=== PATIENT | male | born 1965 | race Caucasian/White ===

== ENCOUNTER 2017-10-13 21:14 | Emergency (ER) | payer OTHER ==
--- NOTE | 2017-10-13 23:30 | RAD ---
RIGHT KNEE RADIOGRAPHS FOUR VIEWS 10/13/17 PROVIDED CLINICAL HISTORY: Right knee pain. FINDINGS: No comparisons. There is no evidence for fracture. Alignment appears anatomic. Joint spaces appear preserved. There i s a well circumscribed somewhat sclerotic lesion involving the medial distal femoral metadiaphyseal r egion, incompletely characterized radiographically. No evidence for significant knee joint capsular d istention. IMPRESSION: 1. No evidence for a fracture. 2. Sclerotic lesion in the medial distal femoral metadiaphyseal region, possibly reflecting a he aled fibroxanthoma. Consider radiographic follow up or correlation with whole body bone scan. POS: CET
[2017-10-13] MEDS ORDERED: Ketorolac Tromethamine 30 MG/ML VIAL ONE (23:48)
== END 2017-10-14 00:30 | disposition home or self-care (01) ==
LOC: ERS 21:14
DX: M25.561 Pain in right knee (principal); I10 Essential (primary) hypertension; E11.9 Type 2 diabetes mellitus without complications; F41.9 Anxiety disorder, unspecified; F32.9 Major depressive disorder, single episode, unspecified; Z87.891 Personal history of nicotine dependence
CPT/HCPCS: 96372; J1885

== ENCOUNTER 2018-02-11 21:56 | Emergency (ER) | payer OTHER ==
[2018-02-11] MEDS ORDERED: Clindamycin 150 MG CAP ONE (22:23)
[2018-02-11] MEDS ORDERED: Ondansetron ODT 4 MG TAB ONE (22:23)
[2018-02-11] MEDS ORDERED: Ibuprofen 800 MG TAB ONE (22:23)
== END 2018-02-11 22:32 | disposition home or self-care (01) ==
LOC: ERS 21:56
DX: S60.467A Insect bite (nonvenomous) of left little finger, initial encounter (principal); L03.012 Cellulitis of left finger; R11.0 Nausea; E11.9 Type 2 diabetes mellitus without complications; I10 Essential (primary) hypertension; F43.10 Post-traumatic stress disorder, unspecified; F41.9 Anxiety disorder, unspecified; F32.9 Major depressive disorder, single episode, unspecified; Z87.891 Personal history of nicotine dependence; W57.XXXA Bitten or stung by nonvenomous insect and other nonvenomous arthropods, initial encounter
CPT/HCPCS: 99283; Q0162

== ENCOUNTER 2018-04-06 14:09 | Inpatient (IN) | payer OTHER, SELFPAY ==
[2018-04-06 15:13] LABS: #Eosinphils 0.1 thou/uL (0.0-0.7); #Lymphocytes 0.9 thou/uL (1.20-3.40); #Neutrophils 8.3 thou/uL (1.40-6.50); %Basophils 0.1 % (0.0-1.0); %Eosinophils 0.6 % (0.0-10.0); %Lymphocytes 8.5 % (21.0-51.0); %Neutrophils 80.7 % (42.0-75.0); Hemoglobin 14.7 g/dL (14.0-18.0); Mean Corpuscular HGB CONC 34.8 g/dL (32.0-36.0); Mean Corpuscular Hemoglobin 29.7 pg (27.0-31.0); Mean Corpuscular Volume 85.3 fL (78.0-98.0); Platelet Count 234 thou/uL (130-400); RBC Distribution Width 12.3 % (11.5-14.5); Red Blood Cell (RBC) Count 4.95 mill/uL (4.70-6.10); White Blood Cell (WBC) Count 10.3 thou/uL (4.8-10.8)
[2018-04-06 15:32] LABS: Anion Gap 16 mmol/L (10-20); BUN (Urea Nitrogen) 17 mg/dL (8.4-25.7); CRP (Inflammatory) 22.79 mg/dL (= or < 0.5); Calc. Creatinine Clearance 0 mL/min (70-130); Calcium 9.8 mg/dL (7.8-10.44); Carbon Dioxide 24 mmol/L (22-29); Chloride 96 mmol/L (98-107); Estimated GFR-MDRD 83; Glucose 204 mg/dL (70-105); Potassium 4.3 mmol/L (3.5-5.1); Sodium 132 mmol/L (136-145)
[2018-04-06] MEDS ORDERED: Morphine 4 MG/ML VIAL ONE (15:32)
[2018-04-06] MEDS ORDERED: Ketorolac Tromethamine 30 MG/ML VIAL ONE (15:32)
--- NOTE | 2018-04-06 16:26 | RAD ---
RIGHT KNEE FOUR VIEWS: 04/06/18 HISTORY: Right knee pain and swelling. COMPARISON: Knee radiographs 10/14/17. FINDINGS: There is extensive prepatellar soft tissue swelling. There is an area of sclerosis of the medullary c anal. There is an area of sclerosis of the medullary canal of the medial aspect of the distal femur. No soft tissue mass is appreciated. There are small lateral compartment osteophytes. IMPRESSION: 1. Extensive prepatellar soft tissue swelling suggesting prepatellar bursitis. 2. 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 POS: TPC
[2018-04-06 16:34] LABS: ALT (SGPT) 22 U/L (8-55); AST (SGOT) 17 U/L (5-34); Albumin 4.3 g/dL (3.5-5.0); Alkaline Phosphatase 117 U/L (40-150); Bilirubin, Total 1.2 mg/dL (0.2-1.2); Globulin 3.6 g/dL (2.4-3.5); Protein, Total 7.9 g/dL (6.0-8.3)
[2018-04-06] MEDS ORDERED: cefTRIAXone\\ROCEPHIN 1 GM VIAL ONE (16:50)
[2018-04-06] MEDS ORDERED: cefTRIAXone\\ROCEPHIN 1 GM in Sodium Chloride 0.9% 100 ML IVPB SCH (17:15)
[2018-04-06] MEDS ORDERED: HYDROcodone/Acetaminophen 5/325 mg Tablet PO PRN (19:55)
[2018-04-06] MEDS ORDERED: hydrALAZINE 20 MG/ML VIAL SLOW IVP PRN ×2 (19:55→22:00)
[2018-04-06 20:02] VITALS: BMI 33.5
[2018-04-06] MEDS: Ketorolac Tromethamine 30 MG/ML VIAL IVP PRN (20:38)
[2018-04-06] MEDS ORDERED: Senokot S 8.6-50 MG TAB PO SCH (21:00)
[2018-04-06] MEDS ORDERED: [UNRECOGNIZED DRUG - REMARK] IVPB PRN (21:55)
[2018-04-06] MEDS ORDERED: Dextrose 5% in Water 1,000 ML IV PRN (21:56)
[2018-04-06] MEDS ORDERED: Dextrose 50% Abboject 50 ML SYRINGE SLOW IVP PRN (21:56)
[2018-04-06] MEDS ORDERED: Ondansetron HCl/PF 4 MG/2 ML Vial IVP PRN (21:58)
[2018-04-06] MEDS ORDERED: Calcium Carbonate 500 MG ChewTAB PO PRN (21:58)
[2018-04-06] MEDS ORDERED: Ondansetron ODT 4 MG TAB PO PRN (21:58)
[2018-04-06] MEDS ORDERED: Milk Of Magnesia 30 ML UDCUP PO PRN (21:58)
[2018-04-06] MEDS ORDERED: Eucerin (Mineral Oil/Petrolatum,White) 30 gm Jar TOP PRN (22:00)
[2018-04-06] MEDS ORDERED: cloNIDine 0.1 MG TAB PO PRN (22:00)
[2018-04-06] MEDS ORDERED: Labetalol HCl 100 MG/20 ML VIAL SLOW IVP PRN (22:00)
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
[2018-04-06] MEDS ORDERED: lamoTRIgine 100 MG TAB PO SCH (22:15)
[2018-04-06] MEDS: Sodium Chloride 0.9% 1,000 ML IV SCH (22:18)
[2018-04-07] MEDS: Vancomycin HCl 1.5 GM in Sodium Chloride 0.9% 250 ML 300 ML IVPB SCH ×2 (00:21→08:49)
[2018-04-07] MEDS: oxyCODONE 5 MG TAB PO PRN ×5 (01:15→22:26)
--- NOTE | 2018-04-07 02:13 | CON ---
DATE OF CONSULTATION: 04/06/2018 CHIEF COMPLAINT: Right knee pain. HISTORY OF PRESENT ILLNESS: Mr. Hernandez is a 53-year-old male who was at work at [employer] over the and last week. He began having pain in the anterior knee, last . This worsened over . He began wearing a knee brace, but continued to have pain and swelling. He developed esther thema yesterday. Today, he presented to the emergency department after he was unable to continue at his normal activity. He was found to have swelling, pain, and erythema. He was thought to have an i nfection of the knee. An attempted aspiration was made; however, no fluid was obtained by the emerge ncy room physician. He has been started on vancomycin and given ceftriaxone. He has plans to be adm itted to the hospital. He is currently still in the emergency department. He denies trauma to the k nee. No cuts, scrapes. PAST MEDICAL HISTORY: Includes chronic low back pain, diabetes, hypertension, history of gout. PAST SURGICAL HISTORY: Lumbar back surgery and appendectomy. PSYCHIATRIC: History of PTSD also anxiety and depression. SOCIAL HISTORY: The patient is employed. He denies any significant tobacco, alcohol, or drug use. ALLERGIES: PENICILLIN. MEDICATIONS: Metformin, ranitidine, Wellbutrin and he says he takes insulin for his diabetes. IMAGES: X-rays of the right knee demonstrate some evidence of osteoarthritis and degenerative change . The joint space is preserved. There is a large amount of soft tissue swelling and what appears to be a joint effusion. PHYSICAL EXAMINATION: VITAL SIGNS: Temperature is 142/82, respiratory rate 18, temperature is 99.2, oxygen saturations 93% . GENERAL: He is alert, sitting upright in no apparent distress. RESPIRATORY: Breathing comfortably. ABDOMEN: Soft, nontender, nondistended. HEENT: Normocephalic, atraumatic. MUSCULOSKELETAL: Patient has a large amount of erythema and swelling of the anterior knee. He is te nder to palpation. He has faint erythema extending distally over the anterior tibia. He is able to flex the knee to 90 degrees. He can fully extend the knee. No drainage or fluctuance noted. IMPRESSION: Prepatellar serve septic bursitis of the right knee in a diabetic male. PLAN: At this point, the patient would benefit from further intravenous antibiotic treatment. He wi ll need to continue broad-spectrum antibiotics. He likely does have a Staph septic bursitis. I will continue to follow. If he develops worsening or a focal abscess certainly over the prepatellar burs a, we could consider irrigation and debridement. Hopefully, he will respond well to antibiotics. I do not think he has a septic knee, but simply a septic bursitis. He can eat and drink until we see h ow he responds to antibiotics. No plans for surgery tomorrow.
[2018-04-07 05:28] LABS: #Eosinphils 0.1 thou/uL (0.0-0.7); #Lymphocytes 0.9 thou/uL (1.20-3.40); #Monocytes 1.1 thou/uL (0.11-0.59); #Neutrophils 6.7 thou/uL (1.40-6.50); %Basophils 0.2 % (0.0-1.0); %Eosinophils 1.1 % (0.0-10.0); %Lymphocytes 10.4 % (21.0-51.0); %Monocytes 12.1 % (0.0-10.0); %Neutrophils 76.3 % (42.0-75.0); Hemoglobin 13.4 g/dL (14.0-18.0); Mean Corpuscular HGB CONC 34.8 g/dL (32.0-36.0); Mean Corpuscular Hemoglobin 29.7 pg (27.0-31.0); Mean Corpuscular Volume 85.3 fL (78.0-98.0); Mean Platelet Volume 6.9 fL (7.4-10.4); Platelet Count 191 thou/uL (130-400); RBC Distribution Width 12.2 % (11.5-14.5); Red Blood Cell (RBC) Count 4.53 mill/uL (4.70-6.10); White Blood Cell (WBC) Count 8.8 thou/uL (4.8-10.8)
[2018-04-07] MEDS: Acetaminophen 325 MG TAB PO PRN ×3 (05:44→22:30)
[2018-04-07 05:49] LABS: Anion Gap 12 mmol/L (10-20); BUN (Urea Nitrogen) 14 mg/dL (8.4-25.7); Calc. Creatinine Clearance 162 mL/min (70-130); Carbon Dioxide 27 mmol/L (22-29); Chloride 98 mmol/L (98-107); Estimated GFR-MDRD 90; Glucose 209 mg/dL (70-105); Magnesium 1.6 mg/dL (1.6-2.6); Potassium 4.3 mmol/L (3.5-5.1); Sodium 133 mmol/L (136-145)
[2018-04-07] MEDS: Sodium Chloride 0.9% 1,000 ML IV SCH (05:57)
[2018-04-07] MEDS: Ketorolac Tromethamine 30 MG/ML VIAL IVP PRN ×3 (05:57→18:21)
[2018-04-07] MEDS: Bupropion 150 MG XL TAB PO SCH (08:48)
[2018-04-07] MEDS: Insulin Glargine 40 UNITS in Pre-Filled Syringe 1 EACH SC SCH (08:48)
[2018-04-07] MEDS: Atorvastatin Calcium 20 MG TAB PO SCH (08:49)
[2018-04-07] MEDS: Saccharomyces boulardii 250 MG CAP PO SCH (08:49)
[2018-04-07] MEDS: Polyethylene Glycol 3350 17 GM Packet PO SCH ×2 (08:58→18:33)
[2018-04-07] MEDS ORDERED: cefTRIAXone\\ROCEPHIN 2 GM in Sodium Chloride 0.9% 100 ML IVPB SCH (09:00)
[2018-04-07] MEDS ORDERED: Famotidine 20 MG TAB PO SCH (09:00)
[2018-04-07] MEDS ORDERED: Heparin 1,000 UNITS/ML VIAL ONE (09:00)
[2018-04-07] MEDS: Senokot S 8.6-50 MG TAB PO SCH ×2 (09:12→18:32)
[2018-04-07] MEDS: Insulin Regular 300 UNITS/3 ML VIAL SC PRN ×2 (11:25→16:33)
[2018-04-07 16:44] LABS: Vancomycin, Trough 8.5 ug/mL
[2018-04-07] MEDS: CEFAZOLIN/Water 2 GM/20 ML SYRINGE SLOW IVP SCH (18:21)
[2018-04-07] MEDS: lamoTRIgine 100 MG TAB PO SCH (20:38)
--- NOTE | 2018-04-07 21:42 | PDOC.PN ---
- Subjective Encounter Start Date: 04/07/18 Encounter Start Time: 18:50 Patient seen and examined for Sepsis. Pain somewhat better controlled. No new complaints. No overnight events - Objective Resuscitation Status: Resuscitation Status FULL:Full Resuscitation MAR Reviewed: Yes Vital Signs & Weight: Vital Signs (12 hours) Temp Pulse Resp BP Pulse Ox 04/07/18 20:00 98.4 F 119 H 20 178/87 H 97 04/07/18 18:05 99.7 F H 106 H 04/07/18 16:18 102.4 F H 111 H 20 167/85 H 95 04/07/18 11:10 99.4 F 99 20 149/92 H 97 Weight Admit Weight 260 lb 12.8 oz Weight 260 lb 12.8 oz I&O: 04/06/18 04/07/18 04/08/18 06:59 06:59 06:59 Intake Total 2500 Output Total 1500 Balance 1000 Result Diagrams: 04/08/18 04:30 04/08/18 04:30 Additional Labs: Accuchecks 04/07/18 04/07/18 04/07/18 20:53 16:22 11:16 POC Glucose 182 H 172 H 290 H Phys Exam - Physical Examination Constitutional: NAD Respiratory: no wheezing, no rhonchi Cardiovascular: RRR, no rub Gastrointestinal: soft, non-tender, positive bowel sounds Dx/Plan - Plan DVT proph w/SCDs IMPRESSION: 1. Sepsis secondary to prepatellar bursitis/infected left gluteal ulcer 2. Diabetes mellitus type 2. 3. Hypertension. 4. Hyperlipidemia. 5. Anxiety, depression, posttraumatic stress disorder. 6. Obesity with a BMI 33.5. 7. Elevated inflammatory markers. 8. Hyponatremia. PLAN: Antibiotics changed to Ancef Ortho/Surg following To surgery in AM AM labs Change Oxycodone to 10 mg Q4h due to uncontrolled pain Cont Vitals Q4 Cont current meds as below Review of Systems - Review of Systems Respiratory: negative: Cough, Dry, Shortness of Breath, Hemoptysis, SOB with Excertion, Pleuritic Pain, Sputum, Wheezing Cardiovascular: negative: chest pain, palpitations, orthopnea, paroxysmal nocturnal dyspnea, edema, light headedness, other - Medications/Allergies Allergies/Adverse Reactions: Allergies Allergy/AdvReac Type Severity Reaction Status Date / Time penicillin G Allergy Verified 04/07/15 03:02 Medications: Current Medications Acetaminophen (Tylenol) 650 mg PO Q4H PRN PRN Reason: Headache/Fever or Mild Pain Last Admin: 04/07/18 16:34 Dose: 650 mg Atorvastatin Calcium (Lipitor) 20 mg PO DAILY [facility] Last Admin: 04/07/18 08:49 Dose: 20 mg Bupropion HCl (Wellbutrin Xl) 300 mg PO DAILY [facility] Last Admin: 04/07/18 08:48 Dose: 300 mg Calcium Carbonate (Tums) 1,000 mg PO Q4H PRN PRN Reason: Heartburn or Indigestion Cefazolin Sodium (Ancef) 2 gm SLOW IVP 0100,0900,1700 [facility] Last Admin: 04/07/18 18:21 Dose: 2 gm Clonidine (Catapres) 0.1 mg PO Q4H PRN PRN Reason: Systolic BP > 180 Dextrose/Water (Dextrose 50%) 25 gm SLOW IVP PRN PRN PRN Reason: Hypoglycemia Glucagon (Glucagon) 1 mg IM PRN PRN PRN Reason: Hypoglycemia Hydralazine HCl (Apresoline) 10 mg SLOW IVP Q4H PRN PRN Reason: SBP Greater Than 180 Dextrose/Water (D5w) 1,000 mls @ 0 mls/hr IV .Q0M PRN; As Directed PRN Reason: Hypoglycemia Insulin Glargine 40 units/ (Miscellaneous Medication) 0.4 mls @ 0 mls/hr SC QAM [facility] Last Admin: 04/07/18 08:48 Dose: 0.4 mls Sodium Chloride (Normal Saline 0.9%) 1,000 mls @ 70 mls/hr IV .[id number] [facility] Last Admin: 04/07/18 05:57 Dose: 1,000 mls Insulin Human Regular (Humulin R) 0 units SC .MODERATE SLIDING SC PRN PRN Reason: Moderate Correctional Scale Last Admin: 04/07/18 16:33 Dose: 2 unit Insulin Human Regular (Humulin R) 0 units SC .BEDTIME SLIDING SC PRN PRN Reason: Bedtime Correctional Scale Ketorolac Tromethamine (Toradol) 15 mg IVP Q6H PRN PRN Reason: Pain Stop: 04/11/18 19:56 Last Admin: 04/07/18 18:21 Dose: 15 mg Labetalol HCl (Normodyne) 10 mg SLOW IVP Q4H PRN PRN Reason: Systolic BP > 180 Lamotrigine (Lamictal) 300 mg PO HS [facility] Last Admin: 04/07/18 20:38 Dose: 300 mg Magnesium Hydroxide (Milk Of Magnesium) 30 ml PO DAILYPRN PRN PRN Reason: Constipation Mineral Oil/White Petrolatum (Eucerin Cream) 0 gm TOP BIDPRN PRN PRN Reason: Dry Skin Miscellaneous Medication (Pharmacy To Dose) 1 each IVPB PRN PRN PRN Reason: Pharmacy to dose Morphine Sulfate (Morphine) 2 mg SLOW IVP Q4H PRN PRN Reason: Moderate Pain (4-6) Stop: 04/10/18 18:31 Morphine Sulfate (Morphine) 4 mg SLOW IVP Q4H PRN PRN Reason: Severe Pain (7-10) Stop: 04/10/18 18:33 Ondansetron HCl (Zofran Odt) 4 mg PO Q6H PRN PRN Reason: Nausea/Vomiting Ondansetron HCl (Zofran) 4 mg IVP Q6H PRN PRN Reason: Nausea/Vomiting Oxycodone HCl (Oxycodone Ir) 10 mg PO Q4H PRN PRN Reason: Moderate to Severe Pain (6-10) Pantoprazole Sodium (Protonix) 40 mg PO [facility] Last Admin: 04/07/18 20:38 Dose: 40 mg Polyethylene Glycol (Miralax) 17 gm PO DAILY [facility] Last Admin: 04/07/18 18:33 Dose: 17 gm Saccharomyces Boulardii (Florastor) 250 mg PO DAILY [facility] Last Admin: 04/07/18 08:49 Dose: 250 mg Senna/Docusate Sodium (Senokot S) 1 tab PO BID [facility] Last Admin: 04/07/18 18:32 Dose: 1 tab Sodium Chloride (Flush - Normal Saline) 10 ml IVF PRN PRN PRN Reason: Saline Flush
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
--- NOTE | 2018-04-07 23:06 | CON ---
DATE OF CONSULTATION: 04/07/2018 CHIEF COMPLAINT: Gluteal abscess. HISTORY OF PRESENT ILLNESS: This 53-year-old male with a 10-day history of a draining abscess of lef t gluteus. He then developed 6 days ago a right knee infection and has a septic knee, is preop for w ashout of the knee. They wanted to try and do both procedures tomorrow. PAST MEDICAL HISTORY: Significant for diabetes, hypertension, gout. ALLERGIES: He has an allergy to PENICILLIN. PAST SURGICAL HISTORY: Appendectomy, back surgery and arm surgery. MEDICATIONS: Metformin, ranitidine and Wellbutrin. 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 No tobacco or alcohol. FAMILY HISTORY: Diabetes, breast cancer, lung cancer. PHYSICAL EXAMINATION: VITAL SIGNS: Temperature 102.4, pulse 111, blood pressure 167/85. GENERAL: He is a well-developed, well-nourished male in no apparent distress. HEENT: Unremarkable. LUNGS: Clear. HEART: Regular rate and rhythm. ABDOMEN: Soft, obese, nontender. RECTAL EXAM: He has got a 2.5 cm left gluteal abscess that is draining. He has a hot right knee. LABORATORY AND X-RAY FINDINGS: His white count is 8.8, H&H is 13 and 38, platelet count 191. Electr olytes are fine. Culture shows Staph aureus. ASSESSMENT: Staphylococcal gluteal abscess left gluteus with septic knee. PLAN: I&D of left gluteal abscess at the time of the knee surgery.
[2018-04-08] MEDS: CEFAZOLIN/Water 2 GM/20 ML SYRINGE SLOW IVP SCH ×4 (00:36→23:52)
[2018-04-08] MEDS: Sodium Chloride 0.9% 1,000 ML IV SCH ×3 (00:38→18:39)
[2018-04-08 05:29] LABS: #Eosinphils 0.1 thou/uL (0.0-0.7); #Lymphocytes 1.1 thou/uL (1.20-3.40); #Monocytes 1.2 thou/uL (0.11-0.59); #Neutrophils 6.4 thou/uL (1.40-6.50); %Eosinophils 1.4 % (0.0-10.0); %Lymphocytes 12.2 % (21.0-51.0); %Monocytes 13.9 % (0.0-10.0); %Neutrophils 72.5 % (42.0-75.0); Hemoglobin 12.5 g/dL (14.0-18.0); Mean Corpuscular HGB CONC 33.1 g/dL (32.0-36.0); Mean Corpuscular Hemoglobin 28.6 pg (27.0-31.0); Mean Corpuscular Volume 86.3 fL (78.0-98.0); Platelet Count 193 thou/uL (130-400); RBC Distribution Width 12.1 % (11.5-14.5); Red Blood Cell (RBC) Count 4.38 mill/uL (4.70-6.10); White Blood Cell (WBC) Count 8.8 thou/uL (4.8-10.8)
[2018-04-08] MEDS: Ketorolac Tromethamine 30 MG/ML VIAL IVP PRN (05:45)
[2018-04-08 05:58] LABS: Anion Gap 12 mmol/L (10-20); BUN (Urea Nitrogen) 13 mg/dL (8.4-25.7); Calc. Creatinine Clearance 176 mL/min (70-130); Calcium 9.1 mg/dL (7.8-10.44); Carbon Dioxide 28 mmol/L (22-29); Chloride 97 mmol/L (98-107); Estimated GFR-MDRD Greater than 90; Glucose 149 mg/dL (70-105); Sodium 133 mmol/L (136-145)
[2018-04-08] MEDS: Bupropion 150 MG XL TAB PO SCH (09:10)
[2018-04-08] MEDS: Atorvastatin Calcium 20 MG TAB PO SCH (09:10)
[2018-04-08] MEDS: Insulin Glargine 40 UNITS in Pre-Filled Syringe 1 EACH SC SCH (09:11)
[2018-04-08] MEDS: Senokot S 8.6-50 MG TAB PO SCH ×2 (09:11→20:37)
[2018-04-08] MEDS: Saccharomyces boulardii 250 MG CAP PO SCH (09:11)
[2018-04-08] MEDS: Polyethylene Glycol 3350 17 GM Packet PO SCH (09:11)
[2018-04-08] MEDS ORDERED: Morphine 4 MG/ML VIAL ONE (12:01)
[2018-04-08] MEDS ORDERED: Metoclopramide HCl 10 MG/2 ML VIAL ONE (14:27)
[2018-04-08] MEDS ORDERED: PROPOFOL 200 MG/20 ML VIAL ONE (14:27)
[2018-04-08] MEDS ORDERED: Succinylcholine Chloride 20 MG/ML 10 ml SYRINGE FS ONE (14:27)
[2018-04-08] MEDS ORDERED: Ondansetron HCl/PF 4 MG/2 ML Vial ONE (14:27)
[2018-04-08] MEDS ORDERED: Lidocaine 1% PF 5 ML VIAL ONE (14:27)
[2018-04-08] MEDS ORDERED: Fentanyl 100 MCG/2 ML VIAL ONE ×2 (15:47→15:58)
[2018-04-08] MEDS ORDERED: Neomycin-Polymyxin 1 ML AMP ONE (15:57)
[2018-04-08] MEDS ORDERED: CEFAZOLIN/Water 2 GM/20 ML SYRINGE ONE (16:09)
[2018-04-08] MEDS ORDERED: Promethazine HCl 25 MG/ML VIAL IM PRN (17:37)
[2018-04-08] MEDS ORDERED: Promethazine HCl 25 MG/ML VIAL SLOW IVP PRN (17:37)
[2018-04-08] MEDS ORDERED: Ondansetron HCl/PF 4 MG/2 ML Vial IVP PRN (17:37)
--- NOTE | 2018-04-08 20:28 | PDOC.PN ---
- Subjective Encounter Start Date: 04/08/18 Encounter Start Time: 19:40 Patient seen and examined for Sepsis. No new complaints. s/p surgery. Pain controlled. No overnight events - Objective Resuscitation Status: Resuscitation Status FULL:Full Resuscitation MAR Reviewed: Yes Vital Signs & Weight: Vital Signs (12 hours) Temp Pulse Resp BP Pulse Ox 04/08/18 17:24 92 148/92 H 96 04/08/18 17:10 98.6 F 93 16 143/90 H 93 L 04/08/18 15:34 99.8 F H 96 16 163/98 H 94 L 04/08/18 12:00 99.1 F 99 16 153/91 H 93 L Weight Admit Weight 260 lb 12.8 oz Weight 260 lb 12.8 oz I&O: 04/07/18 04/08/18 04/09/18 06:59 06:59 06:59 Intake Total 3700 710 Output Total 2350 Balance 1350 710 Result Diagrams: 04/08/18 04:30 04/08/18 04:30 Additional Labs: Accuchecks 04/08/18 04/08/18 04/08/18 18:18 12:40 05:25 POC Glucose 182 H 200 H 153 H 04/07/18 04/07/18 20:53 05:23 POC Glucose 182 H 205 H Phys Exam - Physical Examination Constitutional: NAD Respiratory: no wheezing, no rhonchi Cardiovascular: RRR, no rub Gastrointestinal: soft, non-tender, positive bowel sounds Musculoskeletal: no edema dressing + Dx/Plan - Plan DVT proph w/SCDs IMPRESSION: 1. Sepsis secondary to prepatellar bursitis/infected left gluteal ulcer 2. Diabetes mellitus type 2. 3. Hypertension. 4. Hyperlipidemia. 5. Anxiety, depression, posttraumatic stress disorder. 6. Obesity with a BMI 33.5. 7. Elevated inflammatory markers. 8. Hyponatremia. PLAN: Cont Ancef s/p surgical debridement AM labs Pain control Cont current meds as below Review of Systems - Review of Systems Respiratory: negative: Cough, Dry, Shortness of Breath, Hemoptysis, SOB with Excertion, Pleuritic Pain, Sputum, Wheezing Cardiovascular: negative: chest pain, palpitations, orthopnea, paroxysmal nocturnal dyspnea, edema, light headedness, other - Medications/Allergies Allergies/Adverse Reactions: Allergies Allergy/AdvReac Type Severity Reaction Status Date / Time penicillin G Allergy Verified 04/07/15 03:02 Medications: Current Medications Acetaminophen (Tylenol) 650 mg PO Q4H PRN PRN Reason: Headache/Fever or Mild Pain Last Admin: 04/07/18 22:30 Dose: 650 mg Atorvastatin Calcium (Lipitor) 20 mg PO DAILY [facility] Last Admin: 04/08/18 09:10 Dose: 20 mg Bupropion HCl (Wellbutrin Xl) 300 mg PO DAILY [facility] Last Admin: 04/08/18 09:10 Dose: 300 mg Calcium Carbonate (Tums) 1,000 mg PO Q4H PRN PRN Reason: Heartburn or Indigestion Cefazolin Sodium (Ancef) 2 gm SLOW IVP 0100,0900,1700 [facility] Last Admin: 04/08/18 18:19 Dose: 2 gm Clonidine (Catapres) 0.1 mg PO Q4H PRN PRN Reason: Systolic BP > 180 Dextrose/Water (Dextrose 50%) 25 gm SLOW IVP PRN PRN PRN Reason: Hypoglycemia Fentanyl (Pacu-Sublimaze) 50 mcg SLOW IVP Q10MIN PRN PRN Reason: Moderate to Severe Pain (6-10) Stop: 04/08/18 20:37 Glucagon (Glucagon) 1 mg IM PRN PRN PRN Reason: Hypoglycemia Hydralazine HCl (Apresoline) 10 mg SLOW IVP Q4H PRN PRN Reason: SBP Greater Than 180 Dextrose/Water (D5w) 1,000 mls @ 0 mls/hr IV .Q0M PRN; As Directed PRN Reason: Hypoglycemia Insulin Glargine 40 units/ (Miscellaneous Medication) 0.4 mls @ 0 mls/hr SC QAM [facility] Last Admin: 04/08/18 09:11 Dose: Not Given Sodium Chloride (Normal Saline 0.9%) 1,000 mls @ 70 mls/hr IV .[id number] [facility] Last Admin: 04/08/18 18:39 Dose: 1,000 mls Insulin Human Regular (Humulin R) 0 units SC .MODERATE SLIDING SC PRN PRN Reason: Moderate Correctional Scale Last Admin: 04/07/18 16:33 Dose: 2 unit Insulin Human Regular (Humulin R) 0 units SC .BEDTIME SLIDING SC PRN PRN Reason: Bedtime Correctional Scale Ketorolac Tromethamine (Toradol) 15 mg IVP Q6H PRN PRN Reason: Pain Stop: 04/11/18 19:56 Last Admin: 04/08/18 05:45 Dose: 15 mg Labetalol HCl (Normodyne) 10 mg SLOW IVP Q4H PRN PRN Reason: Systolic BP > 180 Lamotrigine (Lamictal) 300 mg PO HS [facility] Last Admin: 04/07/18 20:38 Dose: 300 mg Magnesium Hydroxide (Milk Of Magnesium) 30 ml PO DAILYPRN PRN PRN Reason: Constipation Mineral Oil/White Petrolatum (Eucerin Cream) 0 gm TOP BIDPRN PRN PRN Reason: Dry Skin Miscellaneous Medication (Pharmacy To Dose) 1 each IVPB PRN PRN PRN Reason: Pharmacy to dose Morphine Sulfate (Morphine) 2 mg SLOW IVP Q4H PRN PRN Reason: Moderate Pain (4-6) Stop: 04/10/18 18:31 Morphine Sulfate (Morphine) 4 mg SLOW IVP Q4H PRN PRN Reason: Severe Pain (7-10) Stop: 04/10/18 18:33 Last Admin: 04/08/18 03:06 Dose: 4 mg Ondansetron HCl (Zofran Odt) 4 mg PO Q6H PRN PRN Reason: Nausea/Vomiting Ondansetron HCl (Zofran) 4 mg IVP Q6H PRN PRN Reason: Nausea/Vomiting Ondansetron HCl (Pacu-Zofran) 4 mg IVP ONE PRN PRN Reason: Nausea/Vomiting Stop: 04/08/18 20:37 Oxycodone HCl (Oxycodone Ir) 10 mg PO Q4H PRN PRN Reason: Moderate to Severe Pain (6-10) Last Admin: 04/07/18 22:26 Dose: 10 mg Pantoprazole Sodium (Protonix) 40 mg PO [facility] Last Admin: 04/07/18 20:38 Dose: 40 mg Polyethylene Glycol (Miralax) 17 gm PO DAILY [facility] Last Admin: 04/08/18 09:11 Dose: Not Given Promethazine HCl (Pacu-Phenergan) 6.25 mg SLOW IVP ONE PRN PRN Reason: Nausea/Vomiting Stop: 04/08/18 20:37 Promethazine HCl (Pacu-Phenergan) 6.25 mg IM ONE PRN PRN Reason: Nausea/Vomiting Stop: 04/08/18 20:37 Saccharomyces Boulardii (Florastor) 250 mg PO DAILY [facility] Last Admin: 04/08/18 09:11 Dose: 250 mg Senna/Docusate Sodium (Senokot S) 1 tab PO BID [facility] Last Admin: 04/08/18 09:11 Dose: 1 tab Sodium Chloride (Flush - Normal Saline) 10 ml IVF PRN PRN PRN Reason: Saline Flush
[2018-04-08] MEDS: lamoTRIgine 100 MG TAB PO SCH (20:37)
[2018-04-08] MEDS ORDERED: Insulin Glargine 20 UNITS in Pre-Filled Syringe 1 EACH SC SCH (21:00)
--- NOTE | 2018-04-08 22:03 | OP ---
PREOPERATIVE DIAGNOSIS: Left gluteal abscess. SURGEON: Robert Kellogg M.D. [facility]: Karlo Fajardo PA-C. PROCEDURE PERFORMED: Incision, drainage, and debridement. INDICATIONS: This is a 53-year-old male, who has had a several week history of a painful draining ab scess on his left gluteus. FINDINGS: A 3 x 3 cm multilocular abscess left gluteus. PROCEDURE IN DETAIL: After informed consent was obtained, the patient was taken to the operating carolyn m and given general endotracheal anesthesia, placed in the right lateral decubitus position, his glut eal area was prepped and draped in usual fashion. An elliptical incision was performed to excise the inflamed area, it was multilocular. Cultures were obtained. There were some subcutaneous locules h ad broken up using hemostats. The wound was thoroughly irrigated with saline then cauterized for hem ostasis with electrocautery, then packed open with Betadine gauze, covered by dry gauze. The patient tolerated the procedure well and was transferred to recovery in good condition. Sponge and needle c ount verified correct x2.
[2018-04-08] MEDS: oxyCODONE 5 MG TAB PO PRN (23:53)
[2018-04-09 04:58] LABS: #Eosinphils 0.1 thou/uL (0.0-0.7); #Lymphocytes 1.2 thou/uL (1.20-3.40); #Neutrophils 6.5 thou/uL (1.40-6.50); %Basophils 0.2 % (0.0-1.0); %Eosinophils 1.3 % (0.0-10.0); %Lymphocytes 13.7 % (21.0-51.0); %Monocytes 11.3 % (0.0-10.0); %Neutrophils 73.5 % (42.0-75.0); Hemoglobin 12.6 g/dL (14.0-18.0); Mean Corpuscular HGB CONC 33.8 g/dL (32.0-36.0); Mean Corpuscular Hemoglobin 29.2 pg (27.0-31.0); Mean Corpuscular Volume 86.4 fL (78.0-98.0); Platelet Count 227 thou/uL (130-400); Red Blood Cell (RBC) Count 4.31 mill/uL (4.70-6.10); White Blood Cell (WBC) Count 8.8 thou/uL (4.8-10.8)
[2018-04-09 05:02] LABS: Anion Gap 12 mmol/L (10-20); BUN (Urea Nitrogen) 14 mg/dL (8.4-25.7); Calc. Creatinine Clearance 179 mL/min (70-130); Calcium 9.1 mg/dL (7.8-10.44); Carbon Dioxide 28 mmol/L (22-29); Chloride 98 mmol/L (98-107); Estimated GFR-MDRD Greater than 90; Glucose 218 mg/dL (70-105); Magnesium 1.6 mg/dL (1.6-2.6); Potassium 4.5 mmol/L (3.5-5.1); Sodium 133 mmol/L (136-145)
[2018-04-09] MEDS ORDERED: Insulin Glargine 20 UNITS in Pre-Filled Syringe 1 EACH SC SCH (09:00)
[2018-04-09] MEDS: Bupropion 150 MG XL TAB PO SCH (09:44)
[2018-04-09] MEDS: Senokot S 8.6-50 MG TAB PO SCH ×2 (09:44→21:12)
[2018-04-09] MEDS: CEFAZOLIN/Water 2 GM/20 ML SYRINGE SLOW IVP SCH ×2 (09:44→18:13)
[2018-04-09] MEDS: Saccharomyces boulardii 250 MG CAP PO SCH (09:45)
[2018-04-09] MEDS: Atorvastatin Calcium 20 MG TAB PO SCH (09:45)
[2018-04-09] MEDS: Polyethylene Glycol 3350 17 GM Packet PO SCH (09:45)
[2018-04-09] MEDS: Sodium Chloride 0.9% 1,000 ML IV SCH (10:00)
[2018-04-09] MEDS: oxyCODONE 5 MG TAB PO PRN ×3 (10:27→21:13)
[2018-04-09] MEDS ORDERED: Insulin Regular 300 UNITS/3 ML VIAL ONE (12:19)
[2018-04-09] MEDS: Insulin Regular 300 UNITS/3 ML VIAL SC PRN ×2 (12:32→17:14)
[2018-04-09] MEDS: lamoTRIgine 100 MG TAB PO SCH (21:15)
[2018-04-09] MEDS: Insulin Glargine 30 UNITS in Pre-Filled Syringe 1 EACH SC SCH (22:15)
--- NOTE | 2018-04-09 22:15 | PDOC.PN ---
- Subjective Encounter Start Date: 04/09/18 Encounter Start Time: 10:00 Patient seen and examined for Sepsis. Pain controlled. No new complaints. No overnight events - Objective Resuscitation Status: Resuscitation Status FULL:Full Resuscitation MAR Reviewed: Yes Vital Signs & Weight: Vital Signs (12 hours) Temp Pulse Resp BP BP Pulse Ox 04/09/18 19:53 98.3 F 91 18 142/89 H 95 04/09/18 17:00 99.5 F 91 18 146/88 H 92 L Weight Admit Weight 260 lb 12.8 oz Weight 260 lb 12.8 oz I&O: 04/08/18 04/09/18 04/10/18 06:59 06:59 06:59 Intake Total 3700 710 1200 Output Total 2350 350 Balance 1350 710 850 Result Diagrams: 04/09/18 04:32 04/09/18 04:32 Additional Labs: Accuchecks 04/09/18 04/09/18 04/09/18 19:54 16:52 11:58 POC Glucose 248 H 259 H 245 H 04/09/18 05:17 POC Glucose 207 H Phys Exam - Physical Examination Constitutional: NAD Respiratory: no wheezing, no rhonchi Cardiovascular: RRR, no rub Gastrointestinal: soft, non-tender, positive bowel sounds Musculoskeletal: no edema Neurological: moves all 4 limbs Dx/Plan - Plan DVT proph w/SCDs IMPRESSION: 1. Sepsis secondary to prepatellar bursitis/infected left gluteal abscess s/p surgery 2. Diabetes mellitus type 2. on sliding scale 3. Hypertension. 4. Hyperlipidemia. 5. Anxiety, depression, posttraumatic stress disorder. 6. Obesity with a BMI 33.5. 7. Elevated inflammatory markers. 8. Hyponatremia. 9. Chronic pain syndrome PLAN: Cont Atbx s/p surgical debridement Change Lantus to 30 units BID Cont sliding scale Cont current meds as below Consult PT Review of Systems - Review of Systems Respiratory: negative: Cough, Dry, Shortness of Breath, Hemoptysis, SOB with Excertion, Pleuritic Pain, Sputum, Wheezing Cardiovascular: negative: chest pain, palpitations, orthopnea, paroxysmal nocturnal dyspnea, edema, light headedness, other - Medications/Allergies Allergies/Adverse Reactions: Allergies Allergy/AdvReac Type Severity Reaction Status Date / Time penicillin G Allergy Verified 04/07/15 03:02 Medications: Current Medications Acetaminophen (Tylenol) 650 mg PO Q4H PRN PRN Reason: Headache/Fever or Mild Pain Last Admin: 04/07/18 22:30 Dose: 650 mg Atorvastatin Calcium (Lipitor) 20 mg PO DAILY [facility] Last Admin: 04/09/18 09:45 Dose: 20 mg Bupropion HCl (Wellbutrin Xl) 300 mg PO DAILY [facility] Last Admin: 04/09/18 09:44 Dose: 300 mg Calcium Carbonate (Tums) 1,000 mg PO Q4H PRN PRN Reason: Heartburn or Indigestion Cefazolin Sodium (Ancef) 2 gm SLOW IVP 0100,0900,1700 [facility] Last Admin: 04/09/18 18:13 Dose: 2 gm Clonidine (Catapres) 0.1 mg PO Q4H PRN PRN Reason: Systolic BP > 180 Dextrose/Water (Dextrose 50%) 25 gm SLOW IVP PRN PRN PRN Reason: Hypoglycemia Glucagon (Glucagon) 1 mg IM PRN PRN PRN Reason: Hypoglycemia Hydralazine HCl (Apresoline) 10 mg SLOW IVP Q4H PRN PRN Reason: SBP Greater Than 180 Dextrose/Water (D5w) 1,000 mls @ 0 mls/hr IV .Q0M PRN; As Directed PRN Reason: Hypoglycemia Sodium Chloride (Normal Saline 0.9%) 1,000 mls @ 70 mls/hr IV .[id number] [facility] Last Admin: 04/09/18 10:00 Dose: 1,000 mls Insulin Glargine 30 units/ (Miscellaneous Medication) 0.3 mls @ 0 mls/hr SC HS [facility] Insulin Glargine 30 units/ (Miscellaneous Medication) 0.3 mls @ 0 mls/hr SC QAM [facility] Insulin Human Regular (Humulin R) 0 units SC .MODERATE SLIDING SC PRN PRN Reason: Moderate Correctional Scale Last Admin: 04/09/18 17:14 Dose: 6 unit Insulin Human Regular (Humulin R) 0 units SC .BEDTIME SLIDING SC PRN PRN Reason: Bedtime Correctional Scale Ketorolac Tromethamine (Toradol) 15 mg IVP Q6H PRN PRN Reason: Pain Stop: 04/11/18 19:56 Last Admin: 04/08/18 05:45 Dose: 15 mg Labetalol HCl (Normodyne) 10 mg SLOW IVP Q4H PRN PRN Reason: Systolic BP > 180 Lamotrigine (Lamictal) 300 mg PO HS [facility] Last Admin: 04/09/18 21:15 Dose: 300 mg Magnesium Hydroxide (Milk Of Magnesium) 30 ml PO DAILYPRN PRN PRN Reason: Constipation Mineral Oil/White Petrolatum (Eucerin Cream) 0 gm TOP BIDPRN PRN PRN Reason: Dry Skin Miscellaneous Medication (Pharmacy To Dose) 1 each IVPB PRN PRN PRN Reason: Pharmacy to dose Morphine Sulfate (Morphine) 2 mg SLOW IVP Q4H PRN PRN Reason: Moderate Pain (4-6) Stop: 04/10/18 18:31 Last Admin: 04/09/18 16:31 Dose: 2 mg Morphine Sulfate (Morphine) 4 mg SLOW IVP Q4H PRN PRN Reason: Severe Pain (7-10) Stop: 04/10/18 18:33 Last Admin: 04/08/18 03:06 Dose: 4 mg Ondansetron HCl (Zofran Odt) 4 mg PO Q6H PRN PRN Reason: Nausea/Vomiting Ondansetron HCl (Zofran) 4 mg IVP Q6H PRN PRN Reason: Nausea/Vomiting Oxycodone HCl (Oxycodone Ir) 10 mg PO Q4H PRN PRN Reason: Moderate to Severe Pain (6-10) Last Admin: 04/09/18 21:13 Dose: 10 mg Pantoprazole Sodium (Protonix) 40 mg PO [facility] Last Admin: 04/09/18 21:15 Dose: 40 mg Polyethylene Glycol (Miralax) 17 gm PO DAILY [facility] Last Admin: 04/09/18 09:45 Dose: 17 gm Saccharomyces Boulardii (Florastor) 250 mg PO DAILY [facility] Last Admin: 04/09/18 09:45 Dose: 250 mg Senna/Docusate Sodium (Senokot S) 1 tab PO BID [facility] Last Admin: 04/09/18 21:12 Dose: 1 tab Sodium Chloride (Flush - Normal Saline) 10 ml IVF PRN PRN PRN Reason: Saline Flush
[2018-04-10] MEDS: Sodium Chloride 0.9% 1,000 ML IV SCH ×4 (00:02→22:23)
[2018-04-10] MEDS: CEFAZOLIN/Water 2 GM/20 ML SYRINGE SLOW IVP SCH ×3 (02:44→17:43)
[2018-04-10] MEDS: oxyCODONE 5 MG TAB PO PRN ×4 (05:08→22:29)
[2018-04-10] MEDS ORDERED: Insulin Glargine 30 UNITS in Pre-Filled Syringe 1 EACH SC SCH (09:00)
[2018-04-10] MEDS: Saccharomyces boulardii 250 MG CAP PO SCH (09:09)
[2018-04-10] MEDS: Atorvastatin Calcium 20 MG TAB PO SCH (09:09)
[2018-04-10] MEDS: Bupropion 150 MG XL TAB PO SCH (09:09)
[2018-04-10] MEDS: Senokot S 8.6-50 MG TAB PO SCH ×2 (09:10→20:37)
[2018-04-10] MEDS: Polyethylene Glycol 3350 17 GM Packet PO SCH (09:13)
--- NOTE | 2018-04-10 12:58 | SPC ---
ULTRASOUND AND FLUOROSCOPIC GUIDED LEFT UPPER EXTREMITY PICC LINE PLACEMENT: INDICATION: Need for long-term IV antibiotics. TECHNIQUE: Informed consent was obtained. Left lower extremity was prepped and draped in the usual sterile fash ion. Patent brachial vein was identified on the preprocedure ultrasound. The site overlying the pro minent brachial vein was anesthetized utilizing buffered 1% Lidocaine. Under ultrasound guidance, a micropuncture access kit was utilized to gain access to the brachial vein. The guidewire was advance d to the level of the IVC. A 5 Irish catheter sheath was then placed. A single-lumen PICC line tri mmed to 45 cm was guided over the wire and through the sheath. The sheath and wire were removed. Th e catheter flushed and aspirated appropriately. The tip of the catheter was seen within the SVC. To marcos fluoroscopic time is 2.5 minutes. Total exposure is 12,819 mGy*^cm2. IMPRESSION: Successful ultrasound and fluoroscopic-guided left upper extremity PICC line placement. POS: DANIEL
[2018-04-10] MEDS: Insulin Regular 300 UNITS/3 ML VIAL SC PRN ×2 (13:30→17:48)
[2018-04-10] MEDS ORDERED: Bisacodyl 10 MG SUPP PR PRN (14:05)
[2018-04-10] MEDS ORDERED: Magnesium Citrate 300 ML BOT PO PRN (14:05)
[2018-04-10] MEDS ORDERED: Fleet Enema 133 ML BOT PR PRN (14:05)
[2018-04-10] MEDS ORDERED: Bisacodyl 5 MG TAB PO PRN (14:05)
[2018-04-10] MEDS ORDERED: Milk Of Magnesia 30 ML UDCUP PO PRN (14:05)
[2018-04-10] MEDS: lamoTRIgine 100 MG TAB PO SCH (20:37)
[2018-04-10] MEDS: Insulin Glargine 30 UNITS in Pre-Filled Syringe 1 EACH SC SCH (20:41)
--- NOTE | 2018-04-10 23:45 | PDOC.PN ---
- Subjective Encounter Start Date: 04/10/18 Encounter Start Time: 12:00 Patient seen and examined for Sepsis/bacteremia. No new complaints. No overnight events - Objective Resuscitation Status: Resuscitation Status FULL:Full Resuscitation MAR Reviewed: Yes Vital Signs & Weight: Vital Signs (12 hours) Temp Pulse Resp BP Pulse Ox 04/10/18 20:00 98.5 F 91 18 164/92 H 96 Weight Admit Weight 260 lb 12.8 oz Weight 260 lb 12.8 oz I&O: 04/09/18 04/10/18 04/11/18 06:59 06:59 06:59 Intake Total 710 1200 1680 Output Total 350 650 Balance 513 325 4281 Result Diagrams: 04/11/18 06:00 04/11/18 06:00 Additional Labs: Accuchecks 04/10/18 04/10/18 04/10/18 20:51 17:43 11:31 POC Glucose 221 H 239 H 324 H 04/10/18 04:57 POC Glucose 232 H Phys Exam - Physical Examination Constitutional: NAD Respiratory: no wheezing, no rhonchi Cardiovascular: RRR, no rub Gastrointestinal: soft, non-tender, positive bowel sounds Musculoskeletal: no edema dressing over the Rt knee and gluteal abscess Neurological: moves all 4 limbs Dx/Plan - Plan PT/OT, out of bed/ambulate, DVT proph w/SCDs (Patient declines SQ Lovenox or Heparin) IMPRESSION: 1. Sepsis secondary to prepatellar bursitis/infected left gluteal abscess s/p I &D 2. Diabetes mellitus type 2. on sliding scale - uncontrolled 3. Hypertension. 4. Hyperlipidemia. 5. Anxiety, depression, posttraumatic stress disorder. 6. Obesity with a BMI 33.5. 7. Elevated inflammatory markers. 8. Hyponatremia. 9. Chronic pain syndrome PLAN: Increase Lantus dose Cont current Atbx Echo - negative for vegetation s/p PICC line Cont current meds as below Cont sliding scale Treat constipation Review of Systems - Review of Systems Respiratory: negative: Cough, Dry, Shortness of Breath, Hemoptysis, SOB with Excertion, Pleuritic Pain, Sputum, Wheezing Cardiovascular: negative: chest pain, palpitations, orthopnea, paroxysmal nocturnal dyspnea, edema, light headedness, other Gastrointestinal: Constipation. negative: Nausea, Vomiting, Abdominal Pain, Diarrhea, Melena, Hematochezia, Other - Medications/Allergies Allergies/Adverse Reactions: Allergies Allergy/AdvReac Type Severity Reaction Status Date / Time penicillin G Allergy Verified 04/07/15 03:02 Medications: Current Medications Acetaminophen (Tylenol) 650 mg PO Q4H PRN PRN Reason: Headache/Fever or Mild Pain Last Admin: 04/07/18 22:30 Dose: 650 mg Atorvastatin Calcium (Lipitor) 20 mg PO DAILY [facility] Last Admin: 04/10/18 09:09 Dose: 20 mg Bisacodyl (Dulcolax) 10 mg SC DAILYPRN PRN PRN Reason: Constipation Bisacodyl (Dulcolax) 10 mg PO DAILYPRN PRN PRN Reason: Constipation Bupropion HCl (Wellbutrin Xl) 300 mg PO DAILY [facility] Last Admin: 04/10/18 09:09 Dose: 300 mg Calcium Carbonate (Tums) 1,000 mg PO Q4H PRN PRN Reason: Heartburn or Indigestion Cefazolin Sodium (Ancef) 2 gm SLOW IVP 0100,0900,1700 [facility] Last Admin: 04/10/18 17:43 Dose: 2 gm Clonidine (Catapres) 0.1 mg PO Q4H PRN PRN Reason: Systolic BP > 180 Dextrose/Water (Dextrose 50%) 25 gm SLOW IVP PRN PRN PRN Reason: Hypoglycemia Glucagon (Glucagon) 1 mg IM PRN PRN PRN Reason: Hypoglycemia Hydralazine HCl (Apresoline) 10 mg SLOW IVP Q4H PRN PRN Reason: SBP Greater Than 180 Dextrose/Water (D5w) 1,000 mls @ 0 mls/hr IV .Q0M PRN; As Directed PRN Reason: Hypoglycemia Insulin Glargine 30 units/ (Miscellaneous Medication) 0.3 mls @ 0 mls/hr SC HS [facility] Last Admin: 04/10/18 20:41 Dose: 0.3 mls Insulin Glargine 40 units/ (Miscellaneous Medication) 0.4 mls @ 0 mls/hr SC QAM [facility] Sodium Chloride (Normal Saline 0.9%) 1,000 mls @ 50 mls/hr IV .Q20H [facility] Last Admin: 04/10/18 22:23 Dose: 1,000 mls Insulin Human Regular (Humulin R) 0 units SC .MODERATE SLIDING SC PRN PRN Reason: Moderate Correctional Scale Last Admin: 04/10/18 17:48 Dose: 4 unit Insulin Human Regular (Humulin R) 0 units SC .BEDTIME SLIDING SC PRN PRN Reason: Bedtime Correctional Scale Labetalol HCl (Normodyne) 10 mg SLOW IVP Q4H PRN PRN Reason: Systolic BP > 180 Lamotrigine (Lamictal) 300 mg PO HS [facility] Last Admin: 04/10/18 20:37 Dose: 300 mg Magnesium Citrate (Citrate Of Magnesia 300 Ml Bot) 300 ml PO DAILY PRN PRN Reason: Constipation Magnesium Hydroxide (Milk Of Magnesium) 30 ml PO DAILYPRN PRN PRN Reason: Constipation Last Admin: 04/10/18 15:50 Dose: 30 ml Magnesium Hydroxide (Milk Of Magnesium) 30 ml PO DAILYPRN PRN PRN Reason: Constipation Mineral Oil/White Petrolatum (Eucerin Cream) 0 gm TOP BIDPRN PRN PRN Reason: Dry Skin Miscellaneous Medication (Pharmacy To Dose) 1 each IVPB PRN PRN PRN Reason: Pharmacy to dose Morphine Sulfate (Morphine) 2 mg SLOW IVP Q4H PRN PRN Reason: Moderate Pain (4-6) Stop: 04/12/18 18:31 Last Admin: 04/10/18 20:35 Dose: 2 mg Morphine Sulfate (Morphine) 4 mg SLOW IVP Q4H PRN PRN Reason: Severe Pain (7-10) Stop: 04/11/18 18:33 Last Admin: 04/08/18 03:06 Dose: 4 mg Ondansetron HCl (Zofran Odt) 4 mg PO Q6H PRN PRN Reason: Nausea/Vomiting Ondansetron HCl (Zofran) 4 mg IVP Q6H PRN PRN Reason: Nausea/Vomiting Oxycodone HCl (Oxycodone Ir) 10 mg PO Q4H PRN PRN Reason: Moderate to Severe Pain (6-10) Last Admin: 04/10/18 22:29 Dose: 10 mg Pantoprazole Sodium (Protonix) 40 mg PO HS [facility] Last Admin: 04/10/18 20:37 Dose: 40 mg Polyethylene Glycol (Miralax) 17 gm PO DAILY [facility] Last Admin: 04/10/18 09:13 Dose: 17 gm Saccharomyces Boulardii (Florastor) 250 mg PO DAILY [facility] Last Admin: 04/10/18 09:09 Dose: 250 mg Senna/Docusate Sodium (Senokot S) 2 tab PO BID [facility] Last Admin: 04/10/18 20:37 Dose: 2 tab Sodium Biphosphate/Sodium Phosphate (Fleet Enema) 133 ml SC DAILY PRN PRN Reason: Constipation Sodium Chloride (Flush - Normal Saline) 10 ml IVF PRN PRN PRN Reason: Saline Flush
[2018-04-11] MEDS: CEFAZOLIN/Water 2 GM/20 ML SYRINGE SLOW IVP SCH ×3 (01:26→18:10)
[2018-04-11 06:38] LABS: #Basophils 0.1 thou/uL (0.0-0.2); #Eosinphils 0.2 thou/uL (0.0-0.7); #Lymphocytes 1.3 thou/uL (1.20-3.40); #Monocytes 0.8 thou/uL (0.11-0.59); #Neutrophils 6.9 thou/uL (1.40-6.50); %Basophils 0.5 % (0.0-1.0); %Eosinophils 1.9 % (0.0-10.0); %Lymphocytes 14.1 % (21.0-51.0); %Monocytes 8.9 % (0.0-10.0); %Neutrophils 74.6 % (42.0-75.0); Hemoglobin 13.5 g/dL (14.0-18.0); Mean Corpuscular HGB CONC 35.1 g/dL (32.0-36.0); Mean Corpuscular Hemoglobin 29.6 pg (27.0-31.0); Mean Corpuscular Volume 84.3 fL (78.0-98.0); Mean Platelet Volume 6.4 fL (7.4-10.4); Platelet Count 306 thou/uL (130-400); Red Blood Cell (RBC) Count 4.56 mill/uL (4.70-6.10); White Blood Cell (WBC) Count 9.2 thou/uL (4.8-10.8)
[2018-04-11 06:45] LABS: Anion Gap 12 mmol/L (10-20); BUN (Urea Nitrogen) 11 mg/dL (8.4-25.7); Calc. Creatinine Clearance 181 mL/min (70-130); Calcium 9.9 mg/dL (7.8-10.44); Carbon Dioxide 30 mmol/L (22-29); Chloride 95 mmol/L (98-107); Estimated GFR-MDRD Greater than 90; Glucose 212 mg/dL (70-105); Potassium 4.4 mmol/L (3.5-5.1); Sodium 133 mmol/L (136-145)
[2018-04-11] MEDS: Polyethylene Glycol 3350 17 GM Packet PO SCH (09:43)
[2018-04-11] MEDS: Atorvastatin Calcium 20 MG TAB PO SCH (09:43)
[2018-04-11] MEDS: Bupropion 150 MG XL TAB PO SCH (09:43)
[2018-04-11] MEDS: Saccharomyces boulardii 250 MG CAP PO SCH (09:43)
[2018-04-11] MEDS: Senokot S 8.6-50 MG TAB PO SCH ×2 (09:43→20:39)
[2018-04-11] MEDS: Insulin Glargine 40 UNITS in Pre-Filled Syringe SC SCH (09:44)
[2018-04-11] MEDS: Insulin Regular 300 UNITS/3 ML VIAL SC PRN ×3 (10:43→20:50)
--- NOTE | 2018-04-11 13:49 | PRG ---
DATE OF SERVICE: 04/11/2018 SUBJECTIVE: The patient is feeling better each day. No headaches. Had no chest pain, no abdominal pain, no back pain, no joint symptoms outside the area of involvement, had I&D of the prepatellar bur sa area. PHYSICAL EXAMINATION: VITAL SIGNS: T-max 99.1, blood pressure 140/80, pulse 90, respirations 18, O2 sat 93%. GENERAL: Appears in no distress, awake, alert, oriented. LUNGS: Clear. CARDIOVASCULAR: S1, S2, regular rate. The gluteal region and improving, right prepatellar area dressing not removed. The operative report from the bursa debridement is not available yet. Echocardiogram transthoracic with no evidence of va lvular abnormalities noted. No pericardial effusion. LABORATORY DATA: White cell count 9.2, hemoglobin 13.5, platelets 306. Chemistry 0.8. Microbiology as noted before. Repeat blood cultures from 04/09/2018 thus far no growth at 48 hours. ASSESSMENT AND DISCUSSION: Type 2 diabetes with chronic low back pain, prepatellar bursitis with met hicillin-resistant Staphylococcus aureus bacteremia, gluteal abscess. The patient to be discharged o n total of 4 weeks of IV antimicrobial therapy with either Rocephin or cefazolin.
[2018-04-11] MEDS: oxyCODONE 5 MG TAB PO PRN ×2 (14:30→20:47)
[2018-04-11] MEDS: Sodium Chloride 0.9% 1,000 ML IV SCH (18:23)
--- NOTE | 2018-04-11 18:40 | PDOC.PN ---
- Subjective Encounter Start Date: 04/11/18 Encounter Start Time: 13:00 Patient seen and examined for bacteremia/Sepsis. No new complaints except for pain over the surgical site. No overnight events - Objective Resuscitation Status: Resuscitation Status FULL:Full Resuscitation MAR Reviewed: Yes Vital Signs & Weight: Vital Signs (12 hours) Temp Pulse Resp BP Pulse Ox 04/11/18 08:00 99.1 F 90 18 143/88 H 93 L Weight Admit Weight 260 lb 12.8 oz Weight 260 lb 12.8 oz I&O: 04/10/18 04/11/18 04/12/18 06:59 06:59 06:59 Intake Total 1200 1680 Output Total 350 650 Balance 850 1030 Result Diagrams: 04/11/18 06:00 04/11/18 06:00 Additional Labs: Accuchecks 04/11/18 04/11/18 04/11/18 16:56 10:06 04:47 POC Glucose 280 H 246 H 203 H 04/10/18 20:51 POC Glucose 221 H Phys Exam - Physical Examination Constitutional: NAD Respiratory: no wheezing, no rhonchi Cardiovascular: RRR, no rub Gastrointestinal: soft, non-tender Musculoskeletal: no edema Neurological: moves all 4 limbs Dx/Plan - Plan DVT proph w/SCDs IMPRESSION: 1. Sepsis secondary to prepatellar bursitis/infected left gluteal abscess s/p I &D 2. Diabetes mellitus type 2. on sliding scale 3. Hypertension. 4. Hyperlipidemia. 5. Anxiety, depression, posttraumatic stress disorder. 6. Obesity with a BMI 33.5. 7. Elevated inflammatory markers. 8. Hyponatremia. 9. Chronic pain syndrome PLAN: Change Lantus dose to 40 units QAM Cont Ancef, s/p PICC line Cont current meds as below Cont sliding scale Cont to monitor PT Review of Systems - Review of Systems Respiratory: negative: Cough, Dry, Shortness of Breath, Hemoptysis, SOB with Excertion, Pleuritic Pain, Sputum, Wheezing Cardiovascular: negative: chest pain, palpitations, orthopnea, paroxysmal nocturnal dyspnea, edema, light headedness, other - Medications/Allergies Allergies/Adverse Reactions: Allergies Allergy/AdvReac Type Severity Reaction Status Date / Time penicillin G Allergy Verified 04/07/15 03:02 Medications: Current Medications Acetaminophen (Tylenol) 650 mg PO Q4H PRN PRN Reason: Headache/Fever or Mild Pain Last Admin: 04/07/18 22:30 Dose: 650 mg Atorvastatin Calcium (Lipitor) 20 mg PO DAILY [facility] Last Admin: 04/11/18 09:43 Dose: 20 mg Bisacodyl (Dulcolax) 10 mg [place] DAILYPRN PRN PRN Reason: Constipation Bisacodyl (Dulcolax) 10 mg PO DAILYPRN PRN PRN Reason: Constipation Bupropion HCl (Wellbutrin Xl) 300 mg PO DAILY [facility] Last Admin: 04/11/18 09:43 Dose: 300 mg Calcium Carbonate (Tums) 1,000 mg PO Q4H PRN PRN Reason: Heartburn or Indigestion Cefazolin Sodium (Ancef) 2 gm SLOW IVP 0100,0900,1700 [facility] Last Admin: 04/11/18 18:10 Dose: 2 gm Clonidine (Catapres) 0.1 mg PO Q4H PRN PRN Reason: Systolic BP > 180 Dextrose/Water (Dextrose 50%) 25 gm SLOW IVP PRN PRN PRN Reason: Hypoglycemia Glucagon (Glucagon) 1 mg IM PRN PRN PRN Reason: Hypoglycemia Hydralazine HCl (Apresoline) 10 mg SLOW IVP Q4H PRN PRN Reason: SBP Greater Than 180 Dextrose/Water (D5w) 1,000 mls @ 0 mls/hr IV .Q0M PRN; As Directed PRN Reason: Hypoglycemia Insulin Glargine 40 units/ (Miscellaneous Medication) 0.4 mls @ 0 mls/hr SC QAM [facility] Last Admin: 04/11/18 09:44 Dose: 0.4 mls Sodium Chloride (Normal Saline 0.9%) 1,000 mls @ 50 mls/hr IV .Q20H [facility] Last Admin: 04/11/18 18:23 Dose: 1,000 mls Insulin Glargine 35 units/ (Miscellaneous Medication) 0.35 mls @ 0 mls/hr SC [facility] Insulin Human Regular (Humulin R) 0 units SC .MODERATE SLIDING SC PRN PRN Reason: Moderate Correctional Scale Last Admin: 04/11/18 17:15 Dose: 6 unit Insulin Human Regular (Humulin R) 0 units SC .BEDTIME SLIDING SC PRN PRN Reason: Bedtime Correctional Scale Labetalol HCl (Normodyne) 10 mg SLOW IVP Q4H PRN PRN Reason: Systolic BP > 180 Lamotrigine (Lamictal) 300 mg PO [facility] Last Admin: 04/10/18 20:37 Dose: 300 mg Magnesium Citrate (Citrate Of Magnesia 300 Ml Bot) 300 ml PO DAILY PRN PRN Reason: Constipation Magnesium Hydroxide (Milk Of Magnesium) 30 ml PO DAILYPRN PRN PRN Reason: Constipation Last Admin: 04/10/18 15:50 Dose: 30 ml Magnesium Hydroxide (Milk Of Magnesium) 30 ml PO DAILYPRN PRN PRN Reason: Constipation Mineral Oil/White Petrolatum (Eucerin Cream) 0 gm TOP BIDPRN PRN PRN Reason: Dry Skin Miscellaneous Medication (Pharmacy To Dose) 1 each IVPB PRN PRN PRN Reason: Pharmacy to dose Morphine Sulfate (Morphine) 2 mg SLOW IVP Q4H PRN PRN Reason: Moderate Pain (4-6) Stop: 04/12/18 18:31 Last Admin: 04/11/18 18:11 Dose: 2 mg Ondansetron HCl (Zofran Odt) 4 mg PO Q6H PRN PRN Reason: Nausea/Vomiting Ondansetron HCl (Zofran) 4 mg IVP Q6H PRN PRN Reason: Nausea/Vomiting Oxycodone HCl (Oxycodone Ir) 10 mg PO Q4H PRN PRN Reason: Moderate to Severe Pain (6-10) Last Admin: 04/11/18 14:30 Dose: 10 mg Pantoprazole Sodium (Protonix) 40 mg PO [facility] Last Admin: 04/10/18 20:37 Dose: 40 mg Polyethylene Glycol (Miralax) 17 gm PO DAILY [facility] Last Admin: 04/11/18 09:43 Dose: 17 gm Saccharomyces Boulardii (Florastor) 250 mg PO DAILY [facility] Last Admin: 04/11/18 09:43 Dose: 250 mg Senna/Docusate Sodium (Senokot S) 2 tab PO BID [facility] Last Admin: 04/11/18 09:43 Dose: 2 tab Sodium Biphosphate/Sodium Phosphate (Fleet Enema) 133 ml AL DAILY PRN PRN Reason: Constipation Sodium Chloride (Flush - Normal Saline) 10 ml IVF PRN PRN PRN Reason: Saline Flush
[2018-04-11] MEDS: lamoTRIgine 100 MG TAB PO SCH (20:40)
[2018-04-11] MEDS: Insulin Glargine 35 UNITS in Pre-Filled Syringe 1 EACH SC SCH (20:41)
[2018-04-12] MEDS: CEFAZOLIN/Water 2 GM/20 ML SYRINGE SLOW IVP SCH ×3 (01:02→17:54)
[2018-04-12] MEDS: Insulin Regular 300 UNITS/3 ML VIAL SC PRN ×4 (05:59→20:45)
[2018-04-12] MEDS: Atorvastatin Calcium 20 MG TAB PO SCH (08:37)
[2018-04-12] MEDS: Senokot S 8.6-50 MG TAB PO SCH ×2 (08:37→20:37)
[2018-04-12] MEDS: Bupropion 150 MG XL TAB PO SCH (08:37)
[2018-04-12] MEDS: Polyethylene Glycol 3350 17 GM Packet PO SCH (08:38)
[2018-04-12] MEDS: Saccharomyces boulardii 250 MG CAP PO SCH (08:38)
[2018-04-12] MEDS: Insulin Glargine 40 UNITS in Pre-Filled Syringe SC SCH (08:39)
[2018-04-12] MEDS: Sodium Chloride 0.9% 1,000 ML IV SCH (13:06)
[2018-04-12] MEDS: oxyCODONE 5 MG TAB PO PRN ×2 (13:39→20:37)
[2018-04-12] MEDS: lamoTRIgine 100 MG TAB PO SCH (20:37)
[2018-04-12] MEDS: Insulin Glargine 35 UNITS in Pre-Filled Syringe 1 EACH SC SCH (20:41)
--- NOTE | 2018-04-12 22:35 | PDOC.PN ---
- Subjective Encounter Start Date: 04/12/18 Encounter Start Time: 15:00 Patient seen and examined for Sepsis/bacteremia. No new complaints. Pain controlled. No overnight events - Objective Resuscitation Status: Resuscitation Status FULL:Full Resuscitation MAR Reviewed: Yes Vital Signs & Weight: Vital Signs (12 hours) Temp Pulse Resp BP BP BP Pulse Ox 04/12/18 20:00 98 F 84 18 04/12/18 19:46 98 F 84 18 152/93 H 97 04/12/18 16:00 98.2 F 84 20 159/97 H 95 04/12/18 12:00 98.2 F 94 18 135/83 96 Weight Admit Weight 260 lb 12.8 oz Weight 260 lb 12.8 oz I&O: 04/11/18 04/12/18 04/13/18 06:59 06:59 06:59 Intake Total 1680 1720 1790 Output Total 650 Balance 1030 1720 1790 Result Diagrams: 04/13/18 04:25 04/13/18 04:25 Additional Labs: Accuchecks 04/12/18 04/12/18 04/12/18 20:44 15:59 12:42 POC Glucose 259 H 262 H 258 H 04/12/18 05:59 POC Glucose 190 H Microbiology 04/09/18 13:09 Venous blood - Right Hand Blood Culture - Preliminary NO GROWTH AT 48 HOURS 04/09/18 13:08 Venous blood - Right Arm Blood Culture - Preliminary NO GROWTH AT 48 HOURS 04/06/18 15:44 Venous blood - Right Arm Blood Culture - Preliminary Gram Positive Cocci 04/06/18 15:40 Venous blood - Left Arm Blood Culture - Preliminary Staphylococcus aureus Phys Exam - Physical Examination Constitutional: NAD Respiratory: no wheezing, no rhonchi Cardiovascular: RRR, no rub Gastrointestinal: soft, non-tender, positive bowel sounds Musculoskeletal: no edema Rt knee dressing Neurological: moves all 4 limbs Dx/Plan - Plan continue antibiotics, PT/OT, out of bed/ambulate, DVT proph w/SCDs IMPRESSION: 1. Sepsis secondary to prepatellar bursitis/infected left gluteal abscess s/p I &D 2. Diabetes mellitus type 2. on sliding scale - uncontrolled. 3. Hypertension. 4. Hyperlipidemia. 5. Anxiety, depression, posttraumatic stress disorder. 6. Obesity with a BMI 33.5/ Elevated inflammatory markers/ Hyponatremia/ Chronic pain syndrome / Constipation - resolved PLAN: Change Lantus dose to 45 units QAM and 35 HS Cont Ancef, s/p PICC line Await home Atbx/wound care setup Cont other meds as below Cont sliding scale DC IVF Review of Systems - Review of Systems Respiratory: negative: Cough, Dry, Shortness of Breath, Hemoptysis, SOB with Excertion, Pleuritic Pain, Sputum, Wheezing Cardiovascular: negative: chest pain, palpitations, orthopnea, paroxysmal nocturnal dyspnea, edema, light headedness, other - Medications/Allergies Allergies/Adverse Reactions: Allergies Allergy/AdvReac Type Severity Reaction Status Date / Time penicillin G Allergy Verified 04/07/15 03:02 Medications: Current Medications Acetaminophen (Tylenol) 650 mg PO Q4H PRN PRN Reason: Headache/Fever or Mild Pain Last Admin: 04/07/18 22:30 Dose: 650 mg Atorvastatin Calcium (Lipitor) 20 mg PO DAILY [facility] Last Admin: 04/12/18 08:37 Dose: 20 mg Bisacodyl (Dulcolax) 10 mg [place] DAILYPRN PRN PRN Reason: Constipation Bisacodyl (Dulcolax) 10 mg PO DAILYPRN PRN PRN Reason: Constipation Bupropion HCl (Wellbutrin Xl) 300 mg PO DAILY [facility] Last Admin: 04/12/18 08:37 Dose: 300 mg Calcium Carbonate (Tums) 1,000 mg PO Q4H PRN PRN Reason: Heartburn or Indigestion Cefazolin Sodium (Ancef) 2 gm SLOW IVP 0100,0900,1700 [facility] Last Admin: 04/12/18 17:54 Dose: 2 gm Clonidine (Catapres) 0.1 mg PO Q4H PRN PRN Reason: Systolic BP > 180 Dextrose/Water (Dextrose 50%) 25 gm SLOW IVP PRN PRN PRN Reason: Hypoglycemia Glucagon (Glucagon) 1 mg IM PRN PRN PRN Reason: Hypoglycemia Hydralazine HCl (Apresoline) 10 mg SLOW IVP Q4H PRN PRN Reason: SBP Greater Than 180 Dextrose/Water (D5w) 1,000 mls @ 0 mls/hr IV .Q0M PRN; As Directed PRN Reason: Hypoglycemia Sodium Chloride (Normal Saline 0.9%) 1,000 mls @ 50 mls/hr IV .Q20H [facility] Last Admin: 04/12/18 13:06 Dose: 1,000 mls Insulin Glargine 35 units/ (Miscellaneous Medication) 0.35 mls @ 0 mls/hr SC [facility] Last Admin: 04/12/18 20:41 Dose: 0.35 mls Insulin Glargine 45 units/ (Miscellaneous Medication) 0.45 mls @ 0 mls/hr SC QAM [facility] Insulin Human Regular (Humulin R) 0 units SC .MODERATE SLIDING SC PRN PRN Reason: Moderate Correctional Scale Last Admin: 04/12/18 18:11 Dose: 6 unit Insulin Human Regular (Humulin R) 0 units SC .BEDTIME SLIDING SC PRN PRN Reason: Bedtime Correctional Scale Last Admin: 04/12/18 20:45 Dose: 3 unit Labetalol HCl (Normodyne) 10 mg SLOW IVP Q4H PRN PRN Reason: Systolic BP > 180 Lamotrigine (Lamictal) 300 mg PO [facility] Last Admin: 04/12/18 20:37 Dose: 300 mg Magnesium Citrate (Citrate Of Magnesia 300 Ml Bot) 300 ml PO DAILY PRN PRN Reason: Constipation Magnesium Hydroxide (Milk Of Magnesium) 30 ml PO DAILYPRN PRN PRN Reason: Constipation Last Admin: 04/10/18 15:50 Dose: 30 ml Mineral Oil/White Petrolatum (Eucerin Cream) 0 gm TOP BIDPRN PRN PRN Reason: Dry Skin Miscellaneous Medication (Pharmacy To Dose) 1 each IVPB PRN PRN PRN Reason: Pharmacy to dose Morphine Sulfate (Morphine) 2 mg SLOW IVP Q4H PRN PRN Reason: Pain Ondansetron HCl (Zofran Odt) 4 mg PO Q6H PRN PRN Reason: Nausea/Vomiting Ondansetron HCl (Zofran) 4 mg IVP Q6H PRN PRN Reason: Nausea/Vomiting Oxycodone HCl (Oxycodone Ir) 10 mg PO Q4H PRN PRN Reason: Moderate to Severe Pain (6-10) Last Admin: 04/12/18 20:37 Dose: 10 mg Pantoprazole Sodium (Protonix) 40 mg PO [facility] Last Admin: 04/12/18 20:37 Dose: 40 mg Polyethylene Glycol (Miralax) 17 gm PO DAILY [facility] Last Admin: 04/12/18 08:38 Dose: Not Given Saccharomyces Boulardii (Florastor) 250 mg PO DAILY [facility] Last Admin: 04/12/18 08:38 Dose: 250 mg Senna/Docusate Sodium (Senokot S) 2 tab PO BID [facility] Last Admin: 04/12/18 20:37 Dose: 2 tab Sodium Biphosphate/Sodium Phosphate (Fleet Enema) 133 ml [place] DAILY PRN PRN Reason: Constipation Sodium Chloride (Flush - Normal Saline) 10 ml IVF PRN PRN PRN Reason: Saline Flush
[2018-04-13] MEDS: oxyCODONE 5 MG TAB PO PRN ×3 (00:30→20:52)
[2018-04-13] MEDS: CEFAZOLIN/Water 2 GM/20 ML SYRINGE SLOW IVP SCH ×3 (00:32→17:16)
[2018-04-13 04:40] LABS: #Eosinphils 0.2 thou/uL (0.0-0.7); #Lymphocytes 1.6 thou/uL (1.20-3.40); #Monocytes 0.7 thou/uL (0.11-0.59); #Neutrophils 5.6 thou/uL (1.40-6.50); %Basophils 0.1 % (0.0-1.0); %Eosinophils 2.4 % (0.0-10.0); %Lymphocytes 19.6 % (21.0-51.0); %Monocytes 8.9 % (0.0-10.0); Hemoglobin 12.7 g/dL (14.0-18.0); Mean Corpuscular HGB CONC 33.9 g/dL (32.0-36.0); Mean Corpuscular Hemoglobin 29.3 pg (27.0-31.0); Mean Corpuscular Volume 86.3 fL (78.0-98.0); Mean Platelet Volume 6.9 fL (7.4-10.4); Platelet Count 287 thou/uL (130-400); RBC Distribution Width 12.1 % (11.5-14.5); Red Blood Cell (RBC) Count 4.33 mill/uL (4.70-6.10); White Blood Cell (WBC) Count 8.1 thou/uL (4.8-10.8)
[2018-04-13 05:23] LABS: Anion Gap 13 mmol/L (10-20); BUN (Urea Nitrogen) 12 mg/dL (8.4-25.7); Calc. Creatinine Clearance 181 mL/min (70-130); Calcium 9.3 mg/dL (7.8-10.44); Carbon Dioxide 29 mmol/L (22-29); Chloride 98 mmol/L (98-107); Estimated GFR-MDRD Greater than 90; Glucose 212 mg/dL (70-105); Potassium 4.2 mmol/L (3.5-5.1); Sodium 136 mmol/L (136-145)
[2018-04-13] MEDS: Insulin Regular 300 UNITS/3 ML VIAL SC PRN ×4 (05:49→20:45)
[2018-04-13] MEDS: Senokot S 8.6-50 MG TAB PO SCH ×2 (08:23→20:44)
[2018-04-13] MEDS: Atorvastatin Calcium 20 MG TAB PO SCH (08:23)
[2018-04-13] MEDS: Saccharomyces boulardii 250 MG CAP PO SCH (08:24)
[2018-04-13] MEDS: Polyethylene Glycol 3350 17 GM Packet PO SCH (08:25)
[2018-04-13] MEDS ORDERED: Insulin Glargine 45 UNITS in Pre-Filled Syringe SC SCH (09:00)
[2018-04-13] MEDS: Bupropion 150 MG XL TAB PO SCH (09:07)
[2018-04-13 10:41] LABS: Fungus Stain Final report (.)
[2018-04-13] MEDS: lamoTRIgine 100 MG TAB PO SCH (20:44)
[2018-04-13] MEDS: Insulin Glargine 35 UNITS in Pre-Filled Syringe 1 EACH SC SCH (20:45)
--- NOTE | 2018-04-13 21:35 | PDOC.PN ---
- Subjective Encounter Start Date: 04/13/18 Encounter Start Time: 13:30 Patient seen and examined for Sepsis. No new complaints. No overnight events - Objective Resuscitation Status: Resuscitation Status FULL:Full Resuscitation MAR Reviewed: Yes Vital Signs & Weight: Vital Signs (12 hours) Temp Pulse Resp BP Pulse Ox 04/13/18 20:00 98.4 F 82 20 139/87 98 Weight Admit Weight 260 lb 12.8 oz Weight 260 lb 12.8 oz I&O: 04/12/18 04/13/18 04/14/18 06:59 06:59 06:59 Intake Total 1720 1790 420 Balance 1720 1790 420 Result Diagrams: 04/13/18 04:25 04/13/18 04:25 Additional Labs: Accuchecks 04/13/18 04/13/18 04/13/18 20:15 16:14 11:16 POC Glucose 336 H 254 H 195 H 04/13/18 04:52 POC Glucose 195 H Phys Exam - Physical Examination Constitutional: NAD Respiratory: no wheezing, no rhonchi Cardiovascular: RRR, no rub Gastrointestinal: soft, non-tender, positive bowel sounds Musculoskeletal: no edema dressing + Neurological: moves all 4 limbs Dx/Plan - Plan DVT proph w/SCDs IMPRESSION: 1. Sepsis secondary to prepatellar bursitis/infected left gluteal abscess s/p I &D - improving 2. Diabetes mellitus type 2. on sliding scale - uncontrolled. 3. Hypertension. 4. Hyperlipidemia. 5. Anxiety, depression, posttraumatic stress disorder. 6. Obesity with a BMI 33.5/ Elevated inflammatory markers/ Hyponatremia/ Chronic pain syndrome / Constipation - resolved PLAN: Increase Lantus dose to 50 units QAM and 35 HS Cont sliding scale Cont Antibiotic, s/p PICC line CM working on home Atbx and wound care Await home Atbx/wound care setupCont other meds as below DC IVF Review of Systems - Review of Systems Respiratory: negative: Cough, Dry, Shortness of Breath, Hemoptysis, SOB with Excertion, Pleuritic Pain, Sputum, Wheezing Cardiovascular: negative: chest pain, palpitations, orthopnea, paroxysmal nocturnal dyspnea, edema, light headedness, other - Medications/Allergies Allergies/Adverse Reactions: Allergies Allergy/AdvReac Type Severity Reaction Status Date / Time penicillin G Allergy Verified 04/07/15 03:02 Medications: Current Medications Acetaminophen (Tylenol) 650 mg PO Q4H PRN PRN Reason: Headache/Fever or Mild Pain Last Admin: 04/07/18 22:30 Dose: 650 mg Atorvastatin Calcium (Lipitor) 20 mg PO DAILY [facility] Last Admin: 04/13/18 08:23 Dose: 20 mg Bisacodyl (Dulcolax) 10 mg [place] DAILYPRN PRN PRN Reason: Constipation Bisacodyl (Dulcolax) 10 mg PO DAILYPRN PRN PRN Reason: Constipation Bupropion HCl (Wellbutrin Xl) 300 mg PO DAILY [facility] Last Admin: 04/13/18 09:07 Dose: 300 mg Calcium Carbonate (Tums) 1,000 mg PO Q4H PRN PRN Reason: Heartburn or Indigestion Cefazolin Sodium (Ancef) 2 gm SLOW IVP 0100,0900,1700 [facility] Last Admin: 04/13/18 17:16 Dose: 2 gm Clonidine (Catapres) 0.1 mg PO Q4H PRN PRN Reason: Systolic BP > 180 Dextrose/Water (Dextrose 50%) 25 gm SLOW IVP PRN PRN PRN Reason: Hypoglycemia Glucagon (Glucagon) 1 mg IM PRN PRN PRN Reason: Hypoglycemia Hydralazine HCl (Apresoline) 10 mg SLOW IVP Q4H PRN PRN Reason: SBP Greater Than 180 Dextrose/Water (D5w) 1,000 mls @ 0 mls/hr IV .Q0M PRN; As Directed PRN Reason: Hypoglycemia Insulin Glargine 35 units/ (Miscellaneous Medication) 0.35 mls @ 0 mls/hr SC HS [facility] Last Admin: 04/13/18 20:45 Dose: 0.35 mls Insulin Glargine 50 units/ (Miscellaneous Medication) 0.5 mls @ 0 mls/hr [facility] [place] Insulin Human Regular (Humulin R) 0 units SC .MODERATE SLIDING SC PRN PRN Reason: Moderate Correctional Scale Last Admin: 04/13/18 17:22 Dose: 6 unit Insulin Human Regular (Humulin R) 0 units SC .BEDTIME SLIDING SC PRN PRN Reason: Bedtime Correctional Scale Last Admin: 04/13/18 20:45 Dose: 4 unit Labetalol HCl (Normodyne) 10 mg SLOW IVP Q4H PRN PRN Reason: Systolic BP > 180 Lamotrigine (Lamictal) [address] [facility] Last Admin: 04/13/18 20:44 Dose: 300 mg Magnesium Citrate (Citrate Of Magnesia 300 Ml Bot) 300 ml PO DAILY PRN PRN Reason: Constipation Magnesium Hydroxide (Milk Of Magnesium) 30 ml PO DAILYPRN PRN PRN Reason: Constipation Last Admin: 04/10/18 15:50 Dose: 30 ml Mineral Oil/White Petrolatum (Eucerin Cream) 0 gm TOP BIDPRN PRN PRN Reason: Dry Skin Miscellaneous Medication (Pharmacy To Dose) 1 each IVPB PRN PRN PRN Reason: Pharmacy to dose Morphine Sulfate (Morphine) 2 mg SLOW IVP Q4H PRN PRN Reason: Pain Last Admin: 04/13/18 03:41 Dose: 2 mg Ondansetron HCl (Zofran Odt) 4 mg PO Q6H PRN PRN Reason: Nausea/Vomiting Ondansetron HCl (Zofran) 4 mg IVP Q6H PRN PRN Reason: Nausea/Vomiting Oxycodone HCl (Oxycodone Ir) 10 mg PO Q4H PRN PRN Reason: Moderate to Severe Pain (6-10) Last Admin: 04/13/18 20:52 Dose: 10 mg Pantoprazole Sodium (Protonix) [address] [facility] Last Admin: 04/13/18 20:45 Dose: 40 mg Polyethylene Glycol (Miralax) 17 gm PO DAILY [facility] Last Admin: 04/13/18 08:25 Dose: Not Given Saccharomyces Boulardii (Florastor) 250 mg PO DAILY [facility] Last Admin: 04/13/18 08:24 Dose: 250 mg Senna/Docusate Sodium (Senokot S) 2 tab PO BID [facility] Last Admin: 04/13/18 20:44 Dose: 2 tab Sodium Biphosphate/Sodium Phosphate (Fleet Enema) 133 ml [place] DAILY PRN PRN Reason: Constipation Sodium Chloride (Flush - Normal Saline) 10 ml IVF PRN PRN PRN Reason: Saline Flush
[2018-04-14] MEDS: CEFAZOLIN/Water 2 GM/20 ML SYRINGE SLOW IVP SCH ×3 (01:38→17:35)
[2018-04-14] MEDS: oxyCODONE 5 MG TAB PO PRN ×2 (01:39→05:47)
[2018-04-14] MEDS: Insulin Regular 300 UNITS/3 ML VIAL SC PRN ×3 (05:48→17:40)
[2018-04-14] MEDS ORDERED: Insulin Glargine 50 UNITS in Pre-Filled Syringe 1 EACH SC SCH (09:00)
[2018-04-14] MEDS: Senokot S 8.6-50 MG TAB PO SCH (09:35)
[2018-04-14] MEDS: Polyethylene Glycol 3350 17 GM Packet PO SCH (09:36)
[2018-04-14] MEDS: Atorvastatin Calcium 20 MG TAB PO SCH (09:36)
[2018-04-14] MEDS: Bupropion 150 MG XL TAB PO SCH (09:36)
[2018-04-14] MEDS: Saccharomyces boulardii 250 MG CAP PO SCH (09:36)
[2018-04-14 16:24] VITALS: BP 145/85; TEMP 98.5
--- NOTE | 2018-04-15 09:01 | DIS ---
DATE OF ADMISSION: 04/06/2018 DATE OF DISCHARGE: 04/14/2018 ADMITTING DIAGNOSIS: Sepsis secondary to prepatellar bursitis. DISCHARGE DIAGNOSES: Sepsis secondary to Staph aureus infection of the prepatellar bursa. SECONDARY DIAGNOSES: 1. Type 2 diabetes mellitus. 2. Hypertension. 3. Hyperlipidemia. 4. Anxiety, depression. 5. Obesity. 6. Hyponatremia. CONSULTANTS: Involved in the care of Dr. Barbosa and Dr. Robert Kellogg from Surgery. HISTORY OF PRESENT ILLNESS AND HOSPITAL COURSE: In brief, this is a 53-year-old white male who prese nted to the hospital with a complaint of pain on the anterior aspect of the knee which was progressiv jackson getting worse, associated with swelling and reduced range of motion. He also noticed warmth and worsening redness, so he decided to come to the ER and arthrocentesis was attempted without success, so his x-rays were showing a right knee extensive prepatellar soft tissue swelling suggestive of prep atellar bursitis. The patient was started on vancomycin and ceftriaxone and cultures were obtained. The patient was also noted to have gluteus ulcer with an abscess which was drained and the culture w as growing Staph aureus, which was sensitive to Rocephin and cefazolin, so Infectious Disease was con sulted who planned for outpatient IV antibiotics for at least 4 weeks. As the patient has a [facility], he w anted to go home and have outpatient setup. So, this has delayed discharge. Finally, the patient mac d antibiotics approved as an outpatient and was approved for Rocephin 2 grams IV daily until 05/18/20. The patient was discharged home in stable condition. PHYSICAL EXAMINATION: On date of discharge: VITAL SIGNS: Blood pressures are 145/85, heart rate is 83, respiratory rate 16, saturation 95%. GENERAL: The patient is moderately built and moderately nourished, does not appear to be in acute di stress. CARDIOVASCULAR: S1, S2 normal. No murmurs, rubs or gallops. LUNGS: Bilateral air entry was equal. No wheezing, no crackles. ABDOMEN: Soft, nontender, no guarding, no rebound tenderness. Bowel sounds are normal. MUSCULOSKELETAL: No calf tenderness. No pedal edema. No joint tenderness, no joint swelling. SKIN: No cyanosis, no erythema, no rash, no pallor. CHAR BELT OPERATOR: Cranial nerves examination II-XII are intact. No focal deficits were noted. DISCHARGE MEDICATIONS: Atorvastatin 20 mg p.o. daily, bupropion 300 mg p.o. q.24 hours, Rocephin 2 g madeline IV daily, lamotrigine 150 mg 2 tablets p.o. at bedtime, metformin 1000 mg p.o. daily, naproxen 5 00 mg p.o. b.i.d., insulin 50 units subQ b.i.d., NPH insulin, oxycodone 5 mg tablets as needed. DISCHARGE INSTRUCTIONS: 1. Continue activity as tolerated. Advised to follow up with Infectious Disease in 1-2 weeks. Nupuri sed to follow up with Infectious Disease every week with a CBC and a CMP drawn at his lab. 2. Follow up with primary care physician in 1 week. 3. Continue with the diabetic diet. 4. Activity as tolerated and as recommended by Dr. Kellogg. I spent 35 minutes with this patient on the day of discharge.
--- NOTE | 2018-04-20 16:48 | OP ---
DATE OF SURGERY: 04/08/2018 PREOPERATIVE DIAGNOSIS: Septic prepatellar bursitis, right. POSTOPERATIVE DIAGNOSIS: Septic prepatellar bursitis, right. SURGICAL PROCEDURE: Incision and drainage of right prepatellar bursa. ANESTHESIA: General. SURGEON: Mario Alberto Guzmán M.D. MOLASSES AND CARAMEL OPERATOR: Karlo Fajardo PA-C. ESTIMATED BLOOD LOSS: 20 mL SPECIMEN: Fluid sent for Gram stain culture and sensitivity. DRAINS: None. COMPLICATIONS: None. IMPLANTS: None. BRIEF HISTORY OF PRESENT ILLNESS: The patient is a 53-year-old gentleman with insidious onset of rig ht septic prepatellar bursitis. The patient also had a significant cellulitic response. The celluli tis has mildly resolved with antibiotics, but he still has a fluctuant prepatellar bursa and as such taken to the operating room for incision and drainage. DESCRIPTION OF PROCEDURE: The patient was brought to the operating room and a timeout performed foll owed by induction of general anesthesia. The patient was positioned supine on the OR table and then a sterile prep and drape was performed of the right lower extremity. Next, a 2-inch long incision wa s made directly centered over the prepatellar bursa. After skin was sharply incised through the subc utaneous fat, the scalpel entered the bursa and seropurulent material came out from the bursa. A fin miles was then used to sweep the bursa to make sure all of the membranes within the bursa had been brok en down and then the bursa was thoroughly irrigated with normal saline. At the completion of this, i t was packed with gauze and then a sterile gauze and Luis Enrique wrap dressing was applied to the knee. Ther e were no complications. The patient tolerated the procedure well.
== END 2018-04-14 20:05 | disposition home or self-care (01) | DRG 854 ==
LOC: ERS 14:09 → T4-A 19:34
PROVIDERS: ADMIT Internal Medicine; ATTEND Internal Medicine
PROC: 0M9N0ZZ Drainage of Right Knee Bursa and Ligament, Open Approach (ICD-10-PCS; principal; 2018-04-08)
PROC: 0Y910ZZ Drainage of Left Buttock, Open Approach (ICD-10-PCS; 2018-04-08)
PROC: 02HV33Z Insertion of Infusion Device into Superior Vena Cava, Percutaneous Approach (ICD-10-PCS; 2018-04-10)
DX: A41.01 Sepsis due to Methicillin susceptible Staphylococcus aureus (principal); E87.1 Hypo-osmolality and hyponatremia; L02.31 Cutaneous abscess of buttock; I10 Essential (primary) hypertension; E66.9 Obesity, unspecified; Z68.33 Body mass index [BMI] 33.0-33.9, adult; E78.5 Hyperlipidemia, unspecified; M10.9 Gout, unspecified; F41.9 Anxiety disorder, unspecified; F32.9 Major depressive disorder, single episode, unspecified; F43.10 Post-traumatic stress disorder, unspecified; G89.4 Chronic pain syndrome; M70.41 Prepatellar bursitis, right knee; K59.00 Constipation, unspecified; Z87.891 Personal history of nicotine dependence; Z88.0 Allergy status to penicillin; Z79.899 Other long term (current) drug therapy
CPT/HCPCS: 36415; 36416; 36569; 80048; 80053; 80202; 83605; 83735; 84550; 85025; 85652; 86140; 87040; 87070; 87077; 87102; 87116; 87149; 87186; 87205; 87206; 93306; 96361; 96365; 96367; 96374; 96375; C1751; G8978-GP-CK; G8979-GP-CJ; J0131; J0360; J0696; J1644; J1815; J1885; J2001; J2270; J2405; J2704; J2765; J3010; J3370; J7050

== ENCOUNTER 2024-07-24 21:57 | Emergency (ER) | payer OTHER, SELFPAY ==
[~2024-07-24 21:57] MED LIST: Iopamidol-370 76% 500 ML MDV (1 ML CHARGE) ONE
[2024-07-24 22:27] LABS: #Basophils 0.03 10x3/uL (0.0-0.2); %Basophils 0.6 % (0.0-1.0); %Eosinophils 1.7 % (0.0-10.0); %Lymphocytes 24.7 % (21.0-51.0); %Monocytes 11.2 % (0.0-10.0); %Neutrophils 61.6 % (42.0-75.0); Hematocrit 44.1 % (42.0-52.0); Hemoglobin 15.3 g/dL (14.0-18.0); Mean Corpuscular HGB CONC 34.7 g/dL (32.0-36.0); Mean Corpuscular Hemoglobin 28.4 pg (27.0-31.0); Mean Platelet Volume 10.3 fL (7.4-10.4); Platelet Count 153 10x3/uL (130-400); RBC Distribution Width 13.9 % (11.5-14.5); Red Blood Cell (RBC) Count 5.38 mill/uL (4.70-6.10)
[2024-07-24 22:44] LABS: ALT (SGPT) 25 U/L (8-55); AST (SGOT) 19 U/L (5-34); Albumin 4.3 g/dL (3.5-5.0); Alkaline Phosphatase 81 U/L (40-110); Anion Gap 16 mmol/L (10-20); BUN (Urea Nitrogen) 22 mg/dL (8.4-25.7); Bilirubin, Total 0.6 mg/dL (0.2-1.2); Calc. Creatinine Clearance 0 mL/min (70-130); Calcium 9.8 mg/dL (7.8-10.44); Carbon Dioxide 24 mmol/L (22-29); Chloride 101 mmol/L (98-107); Estimated GFR 67; Globulin 3.5 g/dL (2.4-3.5); Glucose 226 mg/dL (70-105); Lipase 31 U/L (8-78); Potassium 4.1 mmol/L (3.5-5.1); Protein, Total 7.8 g/dL (6.0-8.3); Sodium 137 mmol/L (136-145)
[2024-07-24 22:51] LABS: Troponin I Less than 0.010 ng/mL (< 0.028)
[2024-07-24] MEDS ORDERED: Ondansetron PF 4 MG/2 ML Vial ONE (23:02)
[2024-07-24] MEDS ORDERED: Ketorolac Tromethamine 30 MG (1 mL) VIAL ONE (23:02)
[2024-07-24] MEDS ORDERED: Morphine 4 MG/ML VIAL ONE (23:02)
== END 2024-07-24 23:57 | disposition home or self-care (01) ==
LOC: ERS 21:57
DX: K57.92 Diverticulitis of intestine, part unspecified, without perforation or abscess without bleeding (principal); K59.00 Constipation, unspecified; E11.9 Type 2 diabetes mellitus without complications; I10 Essential (primary) hypertension; F17.210 Nicotine dependence, cigarettes, uncomplicated
CPT/HCPCS: 36415; 71045; 74177; 80053; 83690; 83880; 84484; 85025; 93005; 96374; 96375; J1885; J2272; J2405; Q9967

== ENCOUNTER 2025-03-21 07:32 | Outpatient (CLI) | payer OTHER | END 2025-03-21 07:33 | disposition home or self-care (01) | LOC: BICULT 07:32 | DX: K74.60 Unspecified cirrhosis of liver (principal); R16.0 Hepatomegaly, not elsewhere classified | CPT/HCPCS: 76705 ==